=== PATIENT | male | born 1975 | race Caucasian/White ===

== ENCOUNTER → 2018-03-07 | Outpatient (REF) | payer OTHER ==
[2018-03-07 13:49] LABS: PLATELET COUNT, AUTOMATED 262 K/uL (150-450)
== END ==
PROVIDERS: ATTEND Physician Assistant Medical
DX: R10.9 Unspecified abdominal pain (principal)
CPT/HCPCS: 82040; 82150; 82247; 82310; 82374; 82435; 82565; 82947; 83690; 84075; 84132; 84155; 84295; 84450; 84460; 84520; 85025

== ENCOUNTER 2018-06-23 00:44 | Day surgery (SDC) | payer OTHER ==
[~2018-06-23] VITALS: Ht 175.3 cm; Wt 72.6 kg
[~2018-06-23 00:44] MED LIST: IBUP-136 PO
[2018-06-23] MEDS ORDERED: PROPOFOL EMUL(*) 10MG/ML 20 ML 20 ML ONE ×2 (07:09→09:03)
[2018-06-23 07:50] VITALS: BP 114/85
[2018-06-23] MEDS ORDERED: LIDOCAINE/SOD BICARB 8.4% SYR ID ONE (07:50)
[2018-06-23] MEDS ORDERED: NORMOSOL R SOLN(*) 1000 ML BAG 1,000 ML IV PRN (07:50)
[2018-06-23 09:31] VITALS: BP 98/68
--- NOTE | 2018-06-23 09:37 | Short(Outpt) Discharge Summary ---
Discharge Summary Reason for Hosp/Final Diag: (1) Family history of colorectal cancer Hospital Course & Plan: Colonoscopy with polypectomy x1 completed without problems. (2) Family history of esophageal cancer Hospital Course & Plan: EGD with biopsies of GE jxn to r/o Ceballos's completed without problems. Departure Discharge to: Home, Self Care Discharge Instructions Home Meds No Active Prescriptions or Reported Meds Diet: Regular Activity: As Tolerated Special Instructions: Your upper endoscopy and colonoscopy were completed without any problems and your bowel prep was excellent (Good Job!!). I performed biopsies of your lower esophagus to look for a precancerous condition called Ceballos's esophagus and I removed 1 small polyp from your colon. My office will call you in the next week or so and let you know what the biopsies reveal and if you need to continue having upper endoscopies for screening. At any rate, you should have another colonoscopy in 5 years due to your family history. DARON TRUJILLO MD Jun 23, 2018 09:37
[2018-06-23 09:45] VITALS: BP 117/82
[2018-06-23 10:18] VITALS: BP 109/84
[2018-06-23 10:19] VITALS: BP 103/72
== END 2018-06-23 10:35 | disposition home or self-care (01) ==
LOC: OR 00:44
PROVIDERS: ATTEND Surgery
DX: Z12.11 Encounter for screening for malignant neoplasm of colon (principal); K20.9 Esophagitis, unspecified; K63.5 Polyp of colon; Z80.0 Family history of malignant neoplasm of digestive organs
CPT/HCPCS: 00811; 43239; 45380; 88305; J2704